=== PATIENT | female | born 2000 ===

== ENCOUNTER 2020-09-20 22:51 | Inpatient (IN) | payer MEDICAID ==
[~2020-09-20] VITALS: Ht 157.5 cm; Wt 66.7 kg
[2020-09-20] MEDS ORDERED: PREN-96 PO (23:20)
[2020-09-21] MEDS ORDERED: WITCH HAZEL-GLYCERIN PAD TOP PRN
[2020-09-21] MEDS ORDERED: BUTORPHANOL TARTRATE 2 MG/1 ML VIAL IV PRN ×2
[2020-09-21] MEDS ORDERED: PHISODERM TOP SOLN 240ML BTL TOP PRN
[2020-09-21] MEDS ORDERED: TERBUTALINE SULFATE 1 MG/ML 1ML VIAL SC ONE
[2020-09-21] MEDS ORDERED: PROMETHAZINE HCL 25 MG/ML 1ML IM PRN
[2020-09-21] MEDS ORDERED: LIDOCAINE 2%HCL (LOCAL ANESTH.) INJ 20ML MDV IJ PRN
[2020-09-21] MEDS ORDERED: DERMOPLAST 60ML BOTTLE TOP PRN
[2020-09-21] MEDS: LACTATED RINGER'S 1,000 ML IV SCH ×3 (00:30→21:55)
[2020-09-21 00:47] LABS: Basophils # (auto) 0.1 10 ^3/uL (0-0.2); Basophils % (auto) 0.9 % (0.0-2.0); Eosinophils # (auto) 0.1 10 ^3/uL (0-0.8); Hematocrit 35.2 % (36.0-46.0); Hemoglobin 12.2 g/dL (12.2-16.2); Lymphocytes # (auto) 2.6 10 ^3/uL (0.4-5.4); Mean Corpuscular Hemoglobin 31.1 pg (28.0-32.0); Mean Corpuscular Hgb Conc. 34.6 g/dL (32.0-36.0); Mean Corpuscular Volume 89.9 fL (80.0-100.0); Monocytes # (auto) 0.7 10 ^3/uL (0-1.3); Monocytes % (auto) 6.9 % (0.0-12.0); Neutrophils # (auto) 6.9 10 ^3/uL (1.6-8.6); Neutrophils % (auto) 66.2 % (37.0-80.0); Nucleated Red Blood Cells % 0.3 %; Platelet Count (auto) 188 10^3/uL (140-450); Red Blood Cells 3.92 10^6/uL (4.0-5.20); Red Cell Distribution Width 14.7 % (11.8-14.3); White Blood Cell 10.4 10^3/uL (4.4-10.8)
[2020-09-21 00:50] LABS: Urine Bacteria NONE SEEN /hpf (None Seen); Urine Blood Negative /uL (Negative); Urine Mucus FEW (None Seen); Urine WBC 1 /hpf (0 - 5)
[2020-09-21 01:04] LABS: Alcohol, Urine < 3.0 mg/dL (0-10); Amphetamine Screen, Urine NEGATIVE (NEGATIVE); Barbiturate Scree,Urine NEGATIVE (NEGATIVE); Benzodiazephine Screen, Urine NEGATIVE (NEGATIVE); Cannabinoid Screen, Urine NEGATIVE (NEGATIVE); Cocaine Screen, Urine NEGATIVE (NEGATIVE); Opiate Scree,Urine NEGATIVE (NEGATIVE); Phencyclidine Screen, Urine NEGATIVE (NEGATIVE)
[2020-09-21 01:05] LABS: Albumin 3.2 g/dL (3.4-5.0); Calcium 8.8 mg/dL (8.5-10.1); Potassium 3.8 mmol/L (3.5-5.1)
[2020-09-21 01:06] LABS: INR 0.95 (0.9-1.15); Partial Thromboplastin Time 25.9 sec (23.0-31.2)
[2020-09-21 01:08] LABS: Bilirubin, Total 0.7 mg/dL (0.2-1.0); Total Protein 7.4 g/dL (6.4-8.2)
[2020-09-21] MEDS: miSOPROStol 50 MCG per PRE-CUT 1/2 TAB PO PRN ×2 (01:50→05:53)
[2020-09-21] MEDS ORDERED: PENICILLIN G POT 5MIL/D5 50ML 50 ML IV ONE (06:00)
[2020-09-21] MEDS ORDERED: LACT. RINGERS/OXYTOCIN 20UNITS 500 ML IV ONE (08:00)
[2020-09-21] MEDS ORDERED: PENICILLIN G POTASSIUM 2,500,000 UNITS in D5W 5% 50 ML IV SCH (10:00)
[2020-09-21] MEDS: LACT. RINGERS/OXYTOCIN 20UNITS 1,000 ML IV SCH ×2 (10:45→21:41)
[2020-09-21] MEDS ORDERED: ceFAZolin 1GM/50ML 50 ML IV SCH ×2 (11:00→19:00)
[2020-09-21] MEDS ORDERED: ePHEDrine SULFATE 50 MG/ML AMP IV ONE (18:45)
[2020-09-21] MEDS ORDERED: LIDOCAINE HCL 2 %PF INJ 10ML AMP IJ ONE (18:45)
[2020-09-21] MEDS ORDERED: ROPIVACAINE HCL 200 ML EPI SCH ×2 (18:45→19:30)
[2020-09-21] MEDS ORDERED: LACTATED RINGER'S 1,000 ML IV ONE (18:45)
[2020-09-21] MEDS ORDERED: METHYLERGONOVINE MALEATE 0.2 MG/ML AMP IM ONE (21:15)
[2020-09-22 03:00] VITALS: BP 120/71
[2020-09-22 07:03] VITALS: BP 101/57
[2020-09-22 07:07] LABS: RPR Non Reactive (Non Reactive)
[2020-09-22 11:00] VITALS: BP 100/55
[2020-09-22 15:00] VITALS: BP 110/60
[2020-09-22 18:30] VITALS: BP 114/63
[2020-09-22 23:11] VITALS: BP 97/53
[2020-09-23 02:41] VITALS: BP 98/56
[2020-09-23 06:45] VITALS: BP 105/68
[2020-09-23] MEDS ORDERED: TETANUS-DIPTH-ACEL PERTUSSIS 0.5ML SYR Tdap IM ONE (09:30)
[2020-09-23 11:12] VITALS: BP 114/71
== END 2020-09-23 11:50 | disposition home or self-care (01) | DRG 560 ==
LOC: LDRP 22:51 → OBSVTOIN 23:47
PROVIDERS: ADMIT Obstetrics & Gynecology; ATTEND Obstetrics & Gynecology
PROC: 10D07Z6 Extraction of Products of Conception, Vacuum, Via Natural or Artificial Opening (ICD-10-PCS; principal; 2020-09-21)
PROC: 3E0R3BZ Introduction of Anesthetic Agent into Spinal Canal, Percutaneous Approach (ICD-10-PCS; 2020-09-21)
PROC: 00HU33Z Insertion of Infusion Device into Spinal Canal, Percutaneous Approach (ICD-10-PCS; 2020-09-21)
PROC: 3E0P7VZ Introduction of Hormone into Female Reproductive, Via Natural or Artificial Opening (ICD-10-PCS; 2020-09-21)
DX: O42.02 Full-term premature rupture of membranes, onset of labor within 24 hours of rupture (principal); Z20.822 Contact with and (suspected) exposure to COVID-19; Z37.0 Single live birth; Z3A.38 38 weeks gestation of pregnancy; Z23 Encounter for immunization
CPT/HCPCS: 36415; 59025; 59409; 62282; 76805; 80053; 80307; 81001; 81002; 84112; 85025; 85610; 85730; 86592; 86850; 86900; 86901; 87426; 90715; 94760; 96361; 96365; 96366; 96372; G0378; J0690; J2540; J2590; J7060